=== PATIENT | male | born 1995 | race Caucasian/White ===

== ENCOUNTER 2020-05-02 19:09 | Emergency (ER) | payer MEDICAID, SELFPAY ==
[2020-05-02 19:10] VITALS: BP 136/80; PULSE 113; RESP 18; TEMP 36.6; O2SAT 95; BMI 39.2
--- NOTE | 2020-05-02 20:11 | ED.VISSUMM ---
- ER Visit Summary Date of Service: 05/02/20 Chief Complaint: Right eye redness History of Present Illness: The patient is a [address] Nicolás Ridley. He reports he has right eye redness that began 2 days ago. He denies any pain. No discharge from his eye. No matting or swelling. He denies any change in his vision. No photophobia. No known injury. No foreign body sensation. He has not been welding. He does not wear glasses or contacts. Patient reports that he does have a history of allergies to cats. He moved in with a friend who has cats 2 and half weeks ago. He reports that he has had no symptoms to his left eye, but his right eye has been itching at home when he has been rubbing it. Physical Examination: Vitals: Stable. Afebrile. Eyes: Right eyes shows diffuse conjunctival injection with ciliary flush. There is mild swelling to his upper eyelid. This is everted and there is no foreign material under this. He does have chemosis of the lower portion of his eye. There is no foreign body. Tetracaine was instilled. There is no foreign body or abrasion to his cornea. There is no dye uptake. General: Well-nourished and well-developed. Head: Normocephalic atraumatic. Neck: Supple, no lymphadenopathy. No JVD. Nontender. Cardiovascular: Regular rate and rhythm. No murmurs. Respiratory: No respiratory distress. Clear to auscultation bilaterally. Abdominal: Soft, nontender, nondistended, normal bowel sounds. No guarding, rebound, or peritoneal signs. Back: Nontender. Extremities: Nontender, no edema. Skin: Normal color, no rash. Neurologic: Alert and oriented ?3. Cranial nerves II through XII are intact. Normal strength and sensation. Psych: Normal affect. Emergency Department Course and Treatment: Had a prolonged discussion with the patient that this does appear to be allergic in etiology. However, I am unsure why it is only his right eye. Treatment Plan: Patient will be discharged with Naphcon-A and instructed to follow-up with Dr. Carmona, of ophthalmology, in 2 days for another exam. Return to the emergency department for any worsening symptoms. Disposition: To home in improved and stable condition. Impression: 1. Allergic conjunctivitis. This note was generated with [employer] software. It may contain incorrect words, spelling, and punctuation that were not noted in review of the chart prior to signing ED Disposition - Plan for ED Patient: Disposition: Home or Assisted Living Instructions: ED Allergic Conjunctivitis Prescriptions: Naphazoline HCl/Phenir Mal [Naphcon-A Eye Drops] 1 drp EACH EYE 4X/DAY PRN #1 bottle PRN Reason: Allergies Prescription Printed Referrals: Grant Carmona MD [STAFF PHYSICIAN] - 2 Days
[2020-05-02] MEDS: Tetracaine 0.5% Ophthalmic Bottle OPHTHALMIC (20:21)
[2020-05-02] MEDS: Fluorescein 1 MG STRIP 1 STRIP OPHTHALMIC (20:21)
== END 2020-05-02 20:22 | disposition home or self-care (01) ==
LOC: ED 19:46
PROVIDERS: Emergency Provider Emergency Medicine
DX: H10.11 Acute atopic conjunctivitis, right eye (principal); Z72.0 Tobacco use
CPT/HCPCS: 99283

== ENCOUNTER → 2020-08-23 | Outpatient (CLI) | payer MEDICAID, SELFPAY ==
[2020-08-22 10:23] VITALS: BMI 39.2
== END | disposition home or self-care (01) ==
LOC: MTDU 17:13
PROVIDERS: Referring Provider Physician Assistant Surgical; Visit Provider Physician Assistant Surgical
DX: Z20.828 Contact with and (suspected) exposure to other viral communicable diseases (principal)
CPT/HCPCS: 87635; C9803; U0003

== ENCOUNTER 2021-01-01 15:06 | Emergency (ER) | payer MEDICAID, SELFPAY ==
[2020-08-22 10:23] VITALS: BMI 39.2
[2021-01-01 15:08] VITALS: BP 132/83; PULSE 94; RESP 14; TEMP 36.4; O2SAT 95; BMI 39.7
--- NOTE | 2021-01-01 15:56 | ED.DCSUM_ITS ---
- ER Visit Summary Date of Service: 01/01/21 Chief Complaint: Sore throat History of Present Illness: The patient is a 25 M with no primary care physician. He reports his sore throat began 2 days ago. Is gradually gotten worse. Is a sharp pain. States that it was actually more severe last night it was 10 out of 10 in severity. Was worsened by swallowing, drinking, or eating. Today it is 4-10 severity. He has not taken anything for pain. He denies fever or cough. Patient reports that he had a similar episode approximately 2 years ago with tonsillitis. He has not seen an biology research assistant. Physical Examination: Vitals: Stable. Afebrile. General: Well-nourished and well-developed. Head: Normocephalic atraumatic. HEENT: Pharyngeal erythema 2+ tonsillar enlargement bilaterally. There is no exudate. There is no evidence of a peritonsillar abscess. Neck: Supple, no lymphadenopathy. No JVD. Nontender. Cardiovascular: Regular rate and rhythm. No murmurs. Respiratory: No respiratory distress. Clear to auscultation bilaterally. Abdominal: Soft, nontender, nondistended, normal bowel sounds. No guarding, rebound, or peritoneal signs. Back: Nontender. Extremities: Nontender, no edema. Skin: Normal color, no rash. Neurologic: Alert and oriented ?3. Cranial nerves II through XII are intact. Normal strength and sensation. Psych: Normal affect. Emergency Department Course and Treatment: Patient was treated amoxicillin and dexamethasone. Treatment Plan: Patient will be discharged with amoxicillin. Instructed use Tylenol and/or ibuprofen for pain. Push fluids. Follow-up with Dr. Mahoney in 1 week if not improving. Return to the emergency department for any worsening symptoms. Disposition: To home in improved and stable condition. Impression: 1. Tonsillitis. This note was generated with [employer] dictation software. It may contain incorrect words, spelling, and punctuation that were not noted in review of the chart prior to signing ED Disposition - Plan for ED Patient: Instructions: ED Tonsillitis Prescriptions: Amoxicillin 500 mg PO TID #30 tablet Referrals: López Maldonado MD [STAFF PHYSICIAN] - 1 Week if not improving
[2021-01-01] MEDS: dexAMETHasone 4 MG Tablet 10 MG PO (16:14)
[2021-01-01] MEDS: AMOXICILLIN 500 MG CAPSULE PO (16:14)
[2021-01-01 16:17] VITALS: PULSE 89; RESP 15; O2SAT 97
== END 2021-01-01 16:18 | disposition home or self-care (01) ==
PROVIDERS: Emergency Provider Emergency Medicine
DX: J03.90 Acute tonsillitis, unspecified (principal); Z72.0 Tobacco use
CPT/HCPCS: 99284

== ENCOUNTER 2021-04-05 18:25 | Emergency (ER) | payer MEDICAID, SELFPAY ==
[2021-04-05 18:26] VITALS: BP 149/92; PULSE 121; RESP 18; TEMP 37; O2SAT 96; BMI 38.6
--- NOTE | 2021-04-05 19:12 | EDS_ITS ---
HPI History of Present Illness Chief Complaint: Shortness of Breath Informant: patient Onset/Context/Timing Onset: Today Context: sudden Timing: Intermittent Quality: Positive for Wheezing Current Severity: Mild Maximum Severity: Moderate Worsened by: Coughing Relieved by: Nothing Narrative Narrative: Patient is a 25-year-old male medical history significant for asthma who presents to the emergency department shortness of breath. Patient states has been in his normal state of health. He states that today, he felt like he was wheezing. He is not sure if it is because of his large tonsils or his asthma. He does not have an inhaler at home. He presented here for further evaluation. He denies cough or fever. He denies any chest pain. [facility] Medical History Asthma Home Medications albuterol sulfate [Ventolin HFA] 2 puff INHALATION Q4H PRN PRN #1 inhaler 04/05/21 [Rx Last Taken Unknown] prednisone 60 mg PO DAILY #15 tablet 04/05/21 [Rx Last Taken Unknown] Allergy/AdvReac Type Severity Reaction Status Date / Time bee venom protein (honey bee) Allergy Rash Verified 04/05/21 18:28 cat dander Allergy PT UNSURE Verified 04/05/21 18:28 OF REACTION Social History Smoking Status: Current every day smoker alcohol intake: never ROS ROS ED Constitutional Constitutional ED: Denies chills or fever(s) Eyes Eyes: Denies blurry vision or change in vision ENT ENT ED: Denies ear pain or sore throat Cardiovascular Cardiovascular: Denies chest pain or palpitations Respiratory/Chest Respiratory/Chest: Reports cough and dyspnea Gastrointestinal Gastrointestinal: Denies abdominal pain, nausea or vomiting Genitourinary Genitourinary ED: Denies dysuria or urinary frequency Musculoskeletal Musculoskeletal: Denies arthralgias or myalgias Integumentary Denies rash Neurologic Neurologic: Denies headache(s) or paresthesias Psychiatric Psychiatric: Denies anxiety or depression Endocrine Endocrinology: Denies polydipsia or polyuria Allergic/Immunologic Allergic/Immunologic ED: Denies urticaria EXAM Physical Exam Const Vital Signs: 04/05/21 18:26 Temperature 98.6 F Temperature Source Temporal Pulse Rate 121 H Respiratory Rate 18 Blood Pressure 149/92 H Blood Pressure Mean 111 Pulse Ox 96 Oxygen Delivery Method Room Air Positive well nourished and well developed General Appearance ED: well developed HEENT Reports normocephalic, head/scalp atraumatic and moist mucous membranes Eyes PERRL and EOMs intact bilaterally Neck no lymphadenopathy and supple General: Negative for tenderness Chest Wall inspection of chest normal Resp normal respiratory effort Auscultation: wheezes Cardio regular rate, regular rhythm and no murmurs GI normal to inspection, nondistended, normoactive bowel sounds Palpation: Negative for tender, guarding or rebound tenderness present Back/Spine no CVA tenderness Cervical Spine: Negative for cervical spine tenderness Thoracic Spine / Upper Back: Negative for thoracic spinal tenderness Extremity normal to inspection General Extremety ED: Negative for tenderness Neuro oriented x3 and CN's II-XII intact bilaterally Neuro Narrative: No focal deficits appreciated. Sensorium / Orientation: alert Psych mental status grossly normal Skin no rashes or lesions noted, no wounds and skin turgor normal MDM MDM MDM Narrative Medical decision making narrative: Patient has a scant wheeze of clears with cough. He is not hypoxic. He has no tachypnea. The patient will be given an inhaler 2 puffs here and dispense for home. I also put him on a short prednisone burst. He is comfortable with this plan of care and will be discharged home. Impression 1. Asthma exacerbation Discharge Plan Triage Chief Complaint: Shortness of Breath ED Provider: Blade Parker Dx/Rx/DC Orders Instructions: ED Asthma, Acute (Adult) Prescriptions: New prednisone 20 MG tablet 60 mg PO DAILY Qty: 15 RF: 0 albuterol sulfate [Ventolin HFA] 1 INHALER inhaler 2 puff inhalation Q4H PRN PRN (Reason: Wheezing) Qty: 1 RF: 0 Primary Care Provider: Care Physician,No Primary Referrals: Care Physician,No Primary [Primary Care Provider] -
[2021-04-05] MEDS: predniSONE 20 MG Tablet 60 MG PO (19:17)
[2021-04-05 19:18] VITALS: O2SAT 97
== END 2021-04-05 20:03 | disposition home or self-care (01) ==
LOC: ED 19:52
PROVIDERS: Emergency Provider Emergency Medicine
DX: J45.901 Unspecified asthma with (acute) exacerbation (principal); F17.200 Nicotine dependence, unspecified, uncomplicated
CPT/HCPCS: 99283

== ENCOUNTER 2021-05-28 15:18 | Emergency (ER) | payer MEDICAID, SELFPAY ==
[2021-05-28 15:19] VITALS: BP 146/107; PULSE 102; RESP 16; TEMP 36.5; O2SAT 96; BMI 42.9
[2021-05-28] MEDS: Ipratropium/Albuterol Sulfate 3 ML AMPUL.NEB INHALATION (16:31)
--- NOTE | 2021-05-28 16:31 | ED.VIS.DYS ---
HPI History of Present Illness Chief Complaint: Shortness of Breath Informant: patient Onset/Context/Timing Onset: Today Context: gradual Timing: Continuous Quality: Positive for Orthopnea Worsened by: Lying flat Relieved by: Nothing Associated Symptoms cough; Negative for rhinorrhea, post nasal drip, ear pain, fever, sore throat, chills, sweats, clear sputum, white sputum, yellow sputum or green sputum Chest Pain: Positive for None Narrative Narrative: Patient presents with shortness of breath and cough that began today. Patient states he woke up and was having shortness of breath today. Patient states he has been coughing today but has not been able to produce any sputum. Patient denies any rhinorrhea or sore throat. Patient denies any chest pain. Patient denies any fevers or chills. Patient denies any exposures to COVID-19. Patient states he has not been vaccinated for COVID-19. Patient denies any PE risk factors. PE Risk Factors: Negative for Cancer, OCP + Smoking + > 35, Prior DVT or PE, Recent surgery and Recent travel [facility] Medical History Asthma Home Medications albuterol sulfate [Ventolin HFA] 2 puff INHALATION Q4H PRN PRN #1 inhaler 04/05/21 [Rx Last Taken Unknown] Allergy/AdvReac Type Severity Reaction Status Date / Time bee venom protein (honey bee) Allergy Rash Verified 05/28/21 15:18 cat dander Allergy PT UNSURE Verified 05/28/21 15:18 OF REACTION no surgical history Social History Smoking Status: Current every day smoker tobacco type: cigarettes alcohol intake: never ROS ROS ED Constitutional Constitutional ED: Denies chills or fever(s) Eyes Eyes: Denies blurry vision or change in vision ENT ENT ED: Denies rhinorrhea or sore throat Cardiovascular Cardiovascular: Denies chest pain or palpitations Respiratory/Chest Respiratory/Chest: Reports cough and dyspnea Gastrointestinal Gastrointestinal: Denies nausea or vomiting Genitourinary Genitourinary ED: Denies dysuria or hematuria Musculoskeletal Musculoskeletal: Denies back pain or neck pain Integumentary Denies abscess or rash Neurologic Neurologic: Denies headache(s) or weakness Allergic/Immunologic Allergic/Immunologic ED: Denies mouth swelling or urticaria EXAM Physical Exam Const Vital Signs: 05/28/21 15:19 05/28/21 15:52 05/28/21 16:32 Temperature 97.7 F L Temperature Source Temporal Pulse Rate 102 H 109 H Respiratory Rate 16 16 Respiratory Effort Normal Non-Labored Respiratory Depth Normal Respiratory Pattern Normal Normal Blood Pressure 146/107 H Blood Pressure Mean 120 Pulse Ox 96 Oxygen Delivery Method Room Air Positive well nourished, well developed, obese and unkempt General Appearance ED: unkempt and well developed Nutritional Appearance: obese HEENT Reports moist mucous membranes Neck supple and no JVD Resp normal respiratory effort Auscultation: diminished lung sounds diffuse Cardio regular rate and regular rhythm GI non-tender and non-distended Auscultation: normoactive bowel sounds Palpation: soft Neuro oriented x3, CN's II-XII intact bilaterally and no sensory deficits noted Sensorium / Orientation: alert Motor Exam: strength 5/5 throughout Psych mental status grossly normal Appearance: unkempt MDM MDM MDM Narrative Medical decision making narrative: Patient was given DuoNeb aerosol here. Portable 1 view chest x-ray was obtained. On my interpretation, lung garcia are clear. There is normal cardiac silhouette. Bony thorax is normal. There is no acute process noted. Radiologist also interpreted the x-ray and agrees. CBC and comprehensive metabolic profile were obtained were within normal limits. COVID-19 rapid antigen was obtained was negative. Patient felt better on reevaluation. Patient was instructed to continue his inhaler as needed. Patient was instructed to take Tylenol or ibuprofen as needed for any aches or fevers. Patient was instructed to follow-up with his primary care physician in 5 to 7 days. Patient understood and was agreeable with the plan. All questions were answered. Lab Data Attestation: I reviewed the patient's lab results. Labs: Laboratory Results - last 24 hr 05/28/21 05/28/21 16:49 16:49 WBC 10.8 RBC 5.10 Hgb 14.8 Hct 44.5 MCV 87.3 MCH 29.0 MCHC 33.3 RDW Std Deviation 42.7 RDW Coeff of Nuvia 13.3 Plt Count 381 MPV 9.6 Immature Gran % (Auto) 0.700 Neut % (Auto) 50.2 Lymph % (Auto) 37.9 Frederick % (Auto) 6.8 Eos % (Auto) 3.6 Baso % (Auto) 0.8 Absolute Neuts (auto) 5.4 Absolute Lymphs (auto) 4.08 Nucleated RBC % 0 Sodium 140 Potassium 3.9 Chloride 108 H Carbon Dioxide 25.0 Anion Gap 7 BUN 12 Creatinine 0.81 Estim Creat Clear Calc 155.68 Est GFR (MDRD) Af Amer 152 Est GFR (MDRD) Non-Af 126 BUN/Creatinine Ratio 14.9 Glucose 109 H Calcium 9.0 Total Bilirubin 0.20 AST 43 H ALT 126 H Alkaline Phosphatase 98 Total Protein 7.5 Albumin 3.3 Globulin 4.2 Albumin/Globulin Ratio 0.8 L Radiography Chest X-Ray - ED: 1 View, Read by ED Physician, Read by Radiologist and Normal Diagnostic Testing: Radiology Impression Chest X-Ray 05/28/21 16:39 IMPRESSION: No radiographic evidence of acute cardiopulmonary disease. at 1654 Reported and signed by: Bayron Briones MD Electronically Signed: Bayron Briones MD at 16:53 EDT Tel , Service support , Discharge Plan Triage Chief Complaint: Shortness of Breath ED Provider: Cedric Godoy Dx/Rx/DC Orders Clinical Impression: Viral URI with cough Instructions: ED URI, Viral, No Abx (Adult) Prescriptions: No Action albuterol sulfate [Ventolin HFA] 1 INHALER inhaler 2 puff inhalation Q4H PRN PRN (Reason: Wheezing) Qty: 1 RF: 0 Primary Care Provider: Care Physician,No Primary Referrals: Blanche Perez [NON-STAFF] - 5-7 Days Care Physician,No Primary [Primary Care Provider] - Disposition Disposition: Home, Self Care
[2021-05-28 16:32] VITALS: PULSE 109; RESP 16
--- NOTE | 2021-05-28 16:39 | RAD_ITS ---
EXAM: XR CHEST, 1 VIEW : 1995 CLINICAL INDICATION: Dyspnea TECHNIQUE: Frontal view of the chest. This report was created using [employer] report generation technology. COMPARISON: None. FINDINGS: LUNGS AND PLEURAL SPACES: Unremarkable. No consolidation or edema. No pneumothorax. No effusion. HEART: Unremarkable. Cardiac silhouette not enlarged. MEDIASTINUM: Central airways and mediastinal contour are unremarkable. BONES/JOINTS: Unremarkable. SOFT TISSUES: Unremarkable. RAD/Chest 1 View (Portable) IMPRESSION: No radiographic evidence of acute cardiopulmonary disease. at 1654 Reported and signed by: Bayron Briones MD Electronically Signed: Bayron Briones MD at 16:53 EDT Tel , Service support ,
[2021-05-28 16:55] LABS: Absolute Lymphocyte Count 4.08 X10^3/uL (0.83-4.51); Absolute Neutrophil Count 5.4 X10^3/uL (2.0-7.7); Basophil# 0.09 X10^3/uL; Basophil% 0.8 % (0-1); Eosinophil# 0.39 X10^3/uL; Eosinophils% 3.6 % (0-5); Hematocrit 44.5 % (40-54); Hemoglobin 14.8 g/dL (13.0-16.5); Lymphocyte # 4.08 X10^3/ul (0.83-4.51); Lymphocyte % 37.9 % (19-41); Mean Corp Hgb Conc 33.3 g/dL (32-36); Mean Corpuscular Volume 87.3 fL (80-94); Mean Platelet Vol. 9.6 fl (6.2-12.0); Monocyte# 0.73 X10^3/uL; Monocyte% 6.8 % (0-10); NRBC Flagged by Analyzer 0 % (0-5); Neutrophil # 5.39 X10^3/uL (2.7-7.7); Neutrophil % 50.2 % (47-70); Platelet Count 381 K/mm3 (150-450); RBC Distribution Width CV 13.3 % (11.6-14.6); RBC Distribution Width SD 42.7 fl (35.1-43.9); White Blood Count 10.8 K/mm3 (4.4-11.0)
[2021-05-28 17:16] LABS: ALB/GLOB Ratio 0.8 RATIO (0.9-2.4); AST(SGOT) 43 U/L (15-37); Alanine Aminotransfer ALT/SGPT 126 U/L (16-61); Albumin, Serum 3.3 g/dL (3.2-5.0); Alkaline Phosphatase 98 U/L (45-117); Anion Gap 7 (5-15); BUN 12 mg/dL (7-18); BUN/Creat Ratio 14.9 RATIO (10-20); Chloride 108 mmol/L (98-107); Creatinine, Serum 0.81 mg/dL (0.70-1.30); EST Glomerular Filtration Rate 126 mL/min (>60); Est Glom Filt Rate - Afr Amer 152 mL/min (>60); Estimated Creatinine Clearance 155.68 ml/min; Globulin 4.2 g/dL (2.2-4.2); Glucose 109 mg/dL (74-106); Potassium 3.9 mmol/L (3.5-5.1); Protein, Total 7.5 g/dL (6.4-8.2); Sodium Level 140 mmol/L (136-145)
[2021-05-28 18:07] VITALS: PULSE 102; RESP 18; O2SAT 95
[2021-05-28 18:30] VITALS: O2SAT 97
== END 2021-05-28 18:31 | disposition home or self-care (01) ==
PROVIDERS: Emergency Provider Emergency Medicine
DX: J06.9 Acute upper respiratory infection, unspecified (principal); J45.909 Unspecified asthma, uncomplicated; F17.210 Nicotine dependence, cigarettes, uncomplicated; E66.9 Obesity, unspecified; Z79.51 Long term (current) use of inhaled steroids
CPT/HCPCS: 71045; 80053; 85025; 87426; 94640; 99282; A4216

== ENCOUNTER 2021-11-09 15:07 | Emergency (ER) | payer MEDICAID, SELFPAY ==
[2021-11-09 15:08] VITALS: BP 137/95; PULSE 95; RESP 16; TEMP 36.2; O2SAT 95; BMI 40.4
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
== END 2021-11-09 16:44 | disposition home or self-care (01) ==
LOC: ED 15:41
PROVIDERS: Emergency Provider Emergency Medicine
DX: S06.0X0A Concussion without loss of consciousness, initial encounter (principal); Y04.0XXA Assault by unarmed brawl or fight, initial encounter; Y93.9 Activity, unspecified; Y92.9 Unspecified place or not applicable; J45.909 Unspecified asthma, uncomplicated; F17.210 Nicotine dependence, cigarettes, uncomplicated
CPT/HCPCS: 70450; 99282

== ENCOUNTER 2023-03-15 10:11 | Emergency (ER) | payer MEDICAID, SELFPAY ==
[2023-03-15 10:12] VITALS: BP 122/91; PULSE 95; RESP 18; TEMP 36.6; O2SAT 95; BMI 45.1
--- NOTE | 2023-03-15 10:21 | EX.ED.DYSGE1 ---
HPI <JIM Calvert - Last Filed: 03/15/23 10:30> History of Present Illness Chief Complaint: Dental Narrative Narrative: Patient is a 27-year-old male with history of asthma presents to the emergency department for 3 to 4 days of right lower dental pain. Patient states he has poor dentition, is not seen a dentist in some time. He does smoke cigarettes. He states that he noticed some jaw pain in the last 3 days. He does have multiple teeth that have broken off however he is not seen a dentist. He denies any fever or chills. Denies any difficulty breathing. Patient denies any difficulty opening or closing his mouth. PFSH <JIM Calvert - Last Filed: 03/15/23 10:30> PFSH Medical History Asthma Home Medications albuterol sulfate 90 mcg/actuation aerosol inhaler (Ventolin HFA) 2 puff inhalation Q4H PRN PRN Wheezing ##1 04/05/21 [Rx Last Taken Unknown] Ventolin HFA 90 mcg/actuation aerosol inhaler (albuterol sulfate) 1 - 2 puff inhalation Q4H PRN PRN Wheezing #18 grams 03/15/23 [Rx Last Taken Unknown] clindamycin HCl 300 mg capsule (Cleocin HCl) 300 mg PO Q8H 10 days #30 caps 03/15/23 [Rx Last Taken Unknown] naproxen 500 mg tablet (Naprosyn) 500 mg PO BID PRN pain #20 tabs 03/15/23 [Rx Last Taken Unknown] Allergy/AdvReac Type Severity Reaction Status Date / Time bee venom protein (honey bee) Allergy Rash Verified 03/15/23 10:15 cat dander Allergy PT UNSURE Verified 03/15/23 10:15 OF REACTION Penicillins [PCN] Allergy PT UNSURE Verified 03/15/23 10:15 OF REACTION Social History Smoking Status: Current every day smoker tobacco type: cigarettes alcohol intake: never ROS <JIM Calvert - Last Filed: 03/15/23 10:30> ROS ED ROS Narrative Constitutional: Negative for fever, chills, weight loss, weakness Eyes: Negative for vision loss, vision change, double vision ENT: Negative for any sore throat, ear pain, congestion. Positive right lower jaw pain, right teeth pain Cardiovascular: Negative for any chest pain, tightness, palpitations Respiratory: Negative for any cough, sputum production, hemoptysis, dyspnea, dyspnea on exertion, orthopnea Gastrointestinal: Negative for any abdominal pain, nausea, vomiting, diarrhea, constipation, blood in stool, blood in vomit : Negative for any urinary frequency, dysuria, retention, blood in urine Muscle skeletal: Negative for any muscle joint pain, stiffness, myalgias, arthralgias, neck pain, back pain Neurological: Negative for any headache, syncope, numbness or tingling, dizziness Skin: Negative for any rashes, lumps, itching, abrasions, lacerations Psychiatric: Negative for any depression, anxiety, stress, suicidal ideation, homicidal ideation Hematologic: Negative for any easy bruising, excessive bruising, easy bleeding Allergies: Negative for any eczema, hives, rash EXAM <JIM Calvert - Last Filed: 03/15/23 10:30> Physical Exam Narrative Exam Narrative: Vital signs reviewed. Patient able speak in complete sentences, patient has no trismus. Patient looks generally well. HEET: Head normocephalic atraumatic, TMs clear bilaterally. Posterior pharynx is clear, moist mucous membranes. Nares clear bilaterally. Patient does have poor dentition, patient has multiple back molars that are fractured or broken off. Multiple dental cavities. There is no fluctuations, no drainage, no abscess formation. No signs or symptoms of deep tissue infection. Neck: Supple with no lymphadenopathy or tenderness. No signs of meningismus, negative jolt sign. Cardiac: Regular rate and rhythm no murmurs gallops or rubs, equal peripheral pulses bilaterally. Respiratory: Lungs clear to auscultation bilaterally. No chest tenderness. Abdomen: Soft, nontender, nondistended. No abdominal bruit or pulsatile masses. No hepatosplenomegaly Extremities: No peripheral edema, no signs of gross trauma or deformity. Active full range of motion of all extremities. Neuro: Cranial nerves II through XII intact, no focal neurological deficits. Skin: Clean dry and intact with no rash, purpura, petechiae, vesicles or pustules. Backs/flank: No CVA tenderness, no midline spinal tenderness, no deformity. Psych: Normal mood and affect. No SI, HI or acute psychosis. Const Vital Signs: 03/15/23 10:12 Temperature 97.8 F Temperature Source Temporal Pulse Rate 95 Respiratory Rate 18 Blood Pressure 122/91 H Blood Pressure Mean 101 Pulse Ox 95 Oxygen Delivery Method Room Air <Dr. Cedric Godoy, - Last Filed: 03/15/23 10:39> Physical Exam Const Vital Signs: 03/15/23 10:12 Temperature 97.8 F Temperature Source Temporal Pulse Rate 95 Respiratory Rate 18 Blood Pressure 122/91 H Blood Pressure Mean 101 Pulse Ox 95 Oxygen Delivery Method Room Air [facility] <Fredy NicholasDAMONC - Last Filed: 03/15/23 10:30> [facility] Treatment and Re-Evaluation :: Patient appears generally well, patient appears nontoxic, vital signs are stable. Patient presents to the emergency department with complaints of right lower jaw pain, teeth pain. Patient's physical examination is consistent with multiple dental caries, multiple fractured teeth that are different ages. Patient has no signs or symptoms of deep tissue infection, Ludwigs angina. Patient be diagnosed with dental caries. He will be placed on clindamycin secondary to his allergy to penicillin. He also be given an albuterol inhaler for his asthma, stating that he is out of his albuterol inhaler. He is happy with the plan of care, he is instructed to return for any worsening symptoms. He will be given a dental referral list. All questions answered, patient stable for discharge <Dr. Cedric Godoy, DO - Last Filed: 03/15/23 10:39> [facility] Narrative Medical decision making narrative: I have personally performed a face to face assessment of the patient and have reviewed the MARY Note. I performed a substantive portion of the visit including all aspects of the following. My hussein findings include: History: Patient presents with right lower dental pain that has been getting worse over the past few days. Patient states that his pain is worse with chewing. Patient denies any fevers or chills. Patient states the pain is over the right lower molars. Patient denies any discharge or drainage. Patient denies any difficulty breathing or difficulty swallowing. Exam: Vital signs are stable. Patient is afebrile. Patient is in no acute distress. Oral mucosa is pink and moist. Oropharynx is clear. Airway is patent. There are dental caries noted over the right lower molars. There is some mild gingival edema. There is no fluctuance. There is no evidence of any abscess. There is no sublingual edema. There is no evidence of Roberto Carlos's angina. Neck is supple. Trachea is midline. There is no JVD or lymphadenopathy. Medical Decision Making: Patient was advised that this is most likely a dental infection. Patient was given a prescription for clindamycin. Patient was instructed to take Tylenol or ibuprofen as needed for pain. Patient was instructed to follow-up with his dentist in 5 to 7 days for further management of his dental caries. Patient understands and is agreeable with the plan. All questions were answered. Discharge Plan Triage Chief Complaint: Dental ED Midlevel Provider: Fredy Nicholas ED Provider: Cedric Godoy Dx/Rx/DC Orders Clinical Impression: Dental caries, Morbid obesity with BMI of 45.0-49.9, adult Instructions: Understanding Tooth Decay, ED Dental Cavity Prescriptions: New albuterol sulfate [Ventolin HFA] 90 mcg/actuation HFA aerosol inhaler 1 - 2 puff inhalation Q4H PRN PRN (Reason: Wheezing) Qty: 18 2RF clindamycin HCl [Cleocin HCl] 300 mg capsule 300 mg PO Q8H 10 Days Qty: 30 0RF naproxen [Naprosyn] 500 mg tablet 500 mg PO BID PRN (Reason: pain) Qty: 20 0RF No Action albuterol sulfate [Ventolin HFA] 1 INHALER inhaler 2 puff inhalation Q4H PRN PRN (Reason: Wheezing) Qty: 1 0RF Stand Alone Forms: ED Work / School Excuse Primary Care Provider: Care Physician,No Primary Referrals: Care Physician,No Primary [Primary Care Provider] - Activity Restrictions/Additional Instructions: Please take antibiotics until completion. You need to follow-up with a dentist. I gave you albuterol inhaler with 2 refills. Disposition Disposition: Home, Self Care
[2023-03-15 10:40] VITALS: PULSE 18
== END 2023-03-15 10:40 | disposition home or self-care (01) ==
PROVIDERS: Emergency Provider Emergency Medicine; Visit Provider Emergency Medicine
DX: K02.9 Dental caries, unspecified (principal); E66.01 Morbid (severe) obesity due to excess calories; Z68.42 Body mass index [BMI] 45.0-49.9, adult; R68.84 Jaw pain; F17.210 Nicotine dependence, cigarettes, uncomplicated; J45.909 Unspecified asthma, uncomplicated
CPT/HCPCS: 99282